=== PATIENT | female | born 1955 | race Caucasian/White ===

== ENCOUNTER 2017-10-18 00:17 | Emergency (ER) | payer SELFPAY ==
[~2017-10-18] VITALS: Ht 170.2 cm; Wt 75.2 kg
[2017-10-18] MEDS ORDERED: ALBUTEROL/IPRATROPIUM 2.5MG/0.5MG, 3 ML NPPB ONE (01:00)
[2017-10-18] MEDS ORDERED: GUAIFENESIN/COD200MG-20MG/10ML LIQUID PO ONE (01:00)
[2017-10-18] MEDS ORDERED: ALBUTEROL SULFATE 2.5 MG/3 ML NPPB ONE (01:00)
[2017-10-18 02:00] VITALS: BP 138/61
== END 2017-10-18 02:49 | disposition home or self-care (01) ==
LOC: ED 01:08
DX: J20.8 Acute bronchitis due to other specified organisms (principal); B97.89 Other viral agents as the cause of diseases classified elsewhere
CPT/HCPCS: 71046; 93005; 94640; 99284; J7512; J7620